=== PATIENT | male | born 1970 | race Caucasian/White ===

== ENCOUNTER 2024-12-21 22:19 | Emergency (ER) | payer MEDICAID ==
[~2024-12-21] VITALS: Ht 185.4 cm; Wt 98.0 kg
[2024-12-21] MEDS: methylPREDNISolone sod succ 125mg/2ml vial IV ONE (22:33)
[2024-12-21] MEDS: normal saline 1000ML IV soln IVB ONE (22:34)
[2024-12-21] MEDS: magnesium sulf-water 2g/50mL 50 ML IV ONE (22:34)
[2024-12-21 22:38] LABS: BASOPHILS # (AUTO) 0.1 X10'3 (0-0.2); BASOPHILS % (AUTO) 0.6 % (0-1); EOSINOPHILS # (AUTO) 0.4 X10'3 (0-0.9); EOSINOPHILS % (AUTO) 4.1 % (0-6); HEMATOCRIT 45.6 % (42.0-52.0); HEMOGLOBIN 15.4 g/dl (14.0-17.9); LYMPHOCYTES # (AUTO) 2.5 X10'3 (1.1-4.8); LYMPHOCYTES % (AUTO) 28.2 % (21-51); MEAN CORPUSCULAR HEMOGLOBIN 31.2 PG (27.0-31.0); MEAN CORPUSCULAR HGB CONC 33.8 g/dL (33.0-36.5); MEAN CORPUSCULAR VOLUME 92.3 FL (78-98); MONOCYTES # (AUTO) 0.9 X10'3 (0-0.9); NEUTROPHILS # (AUTO) 5.1 X10'3 (1.8-7.7); NEUTROPHILS % (AUTO) 57.1 % (42-75); PLATELET COUNT 297 X10'3 (140-440); RED BLOOD COUNT 4.94 X10'6 (4.70-6.10); RED CELL DISTRIBUTION WIDTH 13.6 % (11.5-14.5)
[2024-12-21] MEDS: albuterol 2.5 MG/3 ML nebule CONTNEB PRN (22:39)
[2024-12-21 22:44] VITALS: PULSE 87; RESP 16; O2SAT 99
[2024-12-21 22:48] LABS: D-DIMER 0.26 MG/L FEU (0-0.50)
[2024-12-21 22:52] LABS: ALANINE AMINOTRANSFERASE 43 U/L (12-78); ALBUMIN 3.7 G/DL (3.4-5.0); ALBUMIN/GLOBULIN RATIO 0.9 (1.1-1.5); ALKALINE PHOSPHATASE 137 IU/L (46-116); ANION GAP 5 (8-16); ASPARTATE AMINO TRANSFERASE 30 U/L (10-37); BILIRUBIN,TOTAL 0.2 MG/DL (0.1-1.0); BLOOD UREA NITROGEN 14 MG/DL (7-18); BUN/CREATININE RATIO 12.5 (10.0-20.0); CALCIUM 8.5 MG/DL (8.5-10.1); CHLORIDE 105 MMOL/L (99-107); CREATININE 1.12 MG/DL (0.60-1.10); GLUCOSE 107 MG/DL (70-104); POTASSIUM 3.9 MMOL/L (3.5-5.1); SODIUM 143 MMOL/L (135-145); TOTAL CARBON DIOXIDE 32.7 MMOL/L (24-32); TOTAL PROTEIN 7.8 G/DL (6.4-8.2); eCRCL 85 ML/MIN; eGFR 68 ML/MIN
[2024-12-21 22:59] LABS: MAGNESIUM 2.2 MG/DL (1.5-2.4); PRO BRAIN NATRIURETIC PEPTIDE < 30 PG/ML (0-125)
[2024-12-22 00:51] VITALS: PULSE 92; RESP 20; O2SAT 94
[2024-12-22 00:53] VITALS: PULSE 95; RESP 20; O2SAT 94
[2024-12-22 01:49] VITALS: RESP 20; O2SAT 94
[2024-12-22] MEDS ORDERED: METH4TAB81 PO (02:37)
[2024-12-22] MEDS ORDERED: ALBU18HF2 INH (02:37)
[2024-12-22 02:50] VITALS: BP 136/75; PULSE 105; RESP 18; TEMP 98.9; O2SAT 97
== END 2024-12-22 02:51 | disposition home or self-care (01) ==
LOC: ER 22:19
DX: J45.901 Unspecified asthma with (acute) exacerbation (principal)
CPT/HCPCS: 36415; 71045; 80053; 83735; 83880; 84484; 85025; 85379; 93005; 94640; 96365; 96375; 99285; J2919; J7030; 94644; A4620

== ENCOUNTER 2025-02-14 09:00 | Outpatient (CLI) | payer MEDICAID ==
[~2025-02-14 09:00] MED LIST: ALBU18HF2 INH; METH4TAB81 PO
== END 2025-02-14 23:59 | disposition home or self-care (01) ==
LOC: RT 09:00
PROVIDERS: ATTEND Nurse Practitioner Primary Care
DX: Z53.8 Procedure and treatment not carried out for other reasons (principal); J44.9 Chronic obstructive pulmonary disease, unspecified